=== PATIENT | female | born 1980 | race Caucasian/White ===

== ENCOUNTER 2019-11-07 19:27 | Emergency (ER) | payer OTHER ==
[2019-11-07] MEDS ORDERED: Diphtheria,Pertussis(Acell),Tetanus Vaccine 0.5 ML Syringe IM ONE (19:56)
--- NOTE | 2019-11-07 20:03 | EDM.PDOC ---
ED HPI GENERAL MEDICAL PROBLEM - General Chief Complaint: Laceration Stated Complaint: FINGER LACERATION Time Seen by Provider: 11/07/19 19:42 Source of Information: Reports: Patient, Other (Friend) History Limitations: Reports: No Limitations - History of Present Illness INITIAL COMMENTS - FREE TEXT/NARRATIVE: Mrs. Young is a very pleasant 38-year-old woman who now presents the ED after accidentally cutting off the tip of her left 3rd finger around 19:00 tonight while at work. She states that she was cutting some centeno when she accidentally cut the tip of her finger. She is otherwise uninjured. Here in the ED, the patient is found to be hemodynamically stable, afebrile, saturating 94% on room air. Other than tonight's injury, the patient denies recent fever, chills, sore throat, ear pain, nasal or sinus congestion, cough, dyspnea, chest pain, palpitations, nausea, vomiting, constipation, diarrhea, abdominal pain, urinary symptoms, recent weight gain or weight loss, recent bloody bowel movements or black bowel movements, recent joint aches, headaches, or rashes. The patient does not recall when her last tetanus vaccination was. [facility] The patient's PCP is SACHI Iverson. - Related Data Allergies Allergy/AdvReac Type Severity Reaction Status Date / Time No Known Allergies Allergy Verified 11/07/19 20:02 Past Medical History Musculoskeletal History: Reports: Fracture (mandible when 5 yrs old) Psychiatric History: Reports: Addiction (methamphetamine, alcohol), Anxiety, Depression - Past Surgical History HEENT Surgical History: Reports: Other (See Below) (Mandible wiring when 5 yrs old) Female Surgical History: Reports: Section (x 3), Tubal Ligation Dermatological Surgical History: Reports: Other (See Below) (Pilonidal cyst excision) Social & Family History - Tobacco Use Smoking Status *Q: Current Every Day Smoker Years of Tobacco use: 31 Packs/Tins Daily: 1 Packs/Tins Daily Comment: Down from 1.5 ppd - Alcohol Use Alcohol Use History: Yes Date/Time of Last Drink Comment: Alcoholic, sober x 07/20/2019 - Recreational Drug Use Recreational Drug Use: Yes Drug Use in Last 12 Months: Yes Recreational Drug Type: Reports: Cocaine (Last snorted 07/20/2019. Last smoked crack 07/20/2019.), Ecstasy (last took 07/20/2019), LSD (Acid) (tried once when 12 yrs old), Marijuana/Hashish (last smoked 07/20/2019), Methamphetamine (last snorted, smoked, injected 07/20/2019), Psilocybin (Mushrooms) (last took 1999) - Living Situation & Occupation Living situation: Reports: (), Other (Sober house) Occupation: Employed ([employer]) ED ROS GENERAL - Review of Systems Review Of Systems: Comprehensive ROS is negative, except as noted in HPI. ED EXAM, SKIN/RASH Exam: See Below Exam Limited By: No Limitations General Appearance: Alert, WD/WN, No Apparent Distress Extremities: Other (There is a subcentimeter avulsion of tissue off of the radial corner of the patient's left 3rd finger. The injury involves some of the nail, but does not involve the nailbed. The wound is currently not bleeding. Neurovascular status of the left upper extremity is intact.) Course - Vital Signs Last Recorded V/S: Last Vital Signs Temp 36.9 C 11/07/19 19:35 Pulse 99 11/07/19 19:35 Resp 17 11/07/19 19:35 BP 138/106 H 11/07/19 19:35 Pulse Ox 94 L 11/07/19 19:35 - Orders/Labs/Meds Orders: Active Orders 24 hr Category Date Time Status Vaccines to be Administered [RC] PER UNIT ROUTINE Care 11/07/19 19:56 Ordered Meds: Medications Discontinued Medications Generic Name Dose Route Start Last Admin Trade Name Papo PRN Reason Stop Dose Admin Diphtheria/Tetanus/Acell Pertussis 0.5 ml 11/07/19 19:56 11/07/19 20:02 Adacel IM 11/07/19 19:57 0.5 ml .ONCE ONE Administration - Re-Assessments/Exams Free Text/Narrative Re-Assessment/Exam: 11/07/19 19:57 As above, the patient suffered an avulsion laceration to the radial aspect of the tip of her left 3rd finger. No suturing is necessary. I will have the patient's nurse apply a bacitracin/Xeroform dressing to the fingertip, and have her follow-up with Dr. Weinstein. Antibiotics are not necessary. The patient will be given a tetanus vaccination prior to discharge, and I will write her a note for work. Departure - Departure Time of Disposition: 19:58 Disposition: Home, Self-Care 01 Condition: Good Clinical Impression: Laceration of left middle finger - Discharge Information *PRESCRIPTION DRUG MONITORING PROGRAM REVIEWED*: Not Applicable *COPY OF PRESCRIPTION DRUG MONITORING REPORT IN PATIENT CHARLES: Not Applicable Instructions: Laceration Care, Adult, [id number] Referrals: Gloria Gamez PA-C [Primary Care Provider] - Rah Weinstein MD [Physician] - Forms: ED Department Discharge, ED Return to Work/School Form Additional Instructions: You were seen in the emergency room after accidentally cutting off the tip of your left middle finger while at work tonight. Unfortunately, due to the nature of the cut, no suturing is possible. Your finger was dressed with an antibiotic ointment and nonstick dressing. Keep the dressing clean and dry. You may take [id number] Tylenol or ibuprofen as needed for discomfort. Follow-up with the Orthopedic Surgeon Dr. Rah Weinstein at the next available appointment. A note for work has been provided to you. If any other problems, please do not hesitate to return to the ER. *You were given a tetanus vaccination during your ER visit.* Sepsis Event Note (ED) - Evaluation Sepsis Screening Result: No Definite Risk - Focused Exam Vital Signs: Vital Signs Temp Pulse Resp BP Pulse Ox 11/07/19 19:35 36.9 C 99 17 138/106 H 94 L - My Orders Last 24 Hours: My Active Orders 11/07/19 19:56 Vaccines to be Administered [RC] PER UNIT ROUTINE - Assessment/Plan Last 24 Hours: My Active Orders 11/07/19 19:56 Vaccines to be Administered [RC] PER UNIT ROUTINE
== END 2019-11-07 20:21 | disposition home or self-care (01) ==
LOC: JD.ED 19:27
DX: S61.213A Laceration without foreign body of left middle finger without damage to nail, initial encounter (principal); F17.210 Nicotine dependence, cigarettes, uncomplicated; Z23 Encounter for immunization; W26.9XXA Contact with unspecified sharp object(s), initial encounter
CPT/HCPCS: 90471; 90715; 99282

== ENCOUNTER 2025-01-14 18:54 | Emergency (ER) | payer BC, MEDICAID, OTHER | END 2025-01-14 21:35 | disposition home or self-care (01) | LOC: JD.ED 18:54 | DX: S61.250A Open bite of right index finger without damage to nail, initial encounter (principal); S61.210A Laceration without foreign body of right index finger without damage to nail, initial encounter; F17.200 Nicotine dependence, unspecified, uncomplicated; Z79.899 Other long term (current) drug therapy; W54.0XXA Bitten by dog, initial encounter | CPT/HCPCS: 12001; 73140; 99283; J2003 ==